=== PATIENT | female | born 1950 | race Caucasian/White ===

== ENCOUNTER 2018-12-31 16:57 | Inpatient (IN) | payer OTHER, MEDICAID ==
[~2018-12-31] VITALS: Ht 162.6 cm; Wt 104.8 kg
[2018-12-31 17:04] VITALS: BP_SYST 120
[2018-12-31] MEDS ORDERED: IPRATROPIUM/ALBUTEROL SULFATE 3 ML AMPUL.NEB (DUONEB) ONE (17:11)
[2018-12-31] MEDS ORDERED: methylPREDNISolone SOD SUCC/PF 62.5 MG/ML VIAL IVP ONE (18:15)
[2018-12-31 18:45] LABS: CALCIUM 9.5 mg/dL (8.4-11.0); CREATININE 6.84 mg/dL (0.55-1.30); POTASSIUM 3.8 mmol/L (3.5-5.1)
[2018-12-31 18:49] LABS: ALBUMIN 3.5 g/dL (3.4-4.8); TOTAL BILIRUBIN 0.6 mg/dL (0.0-1.0)
[2018-12-31 18:56] LABS: PROTHROMBIN TIME 9.9 SECS (9.5-12.5)
[2018-12-31 19:00] LABS: HEMATOCRIT 37.3 % (36-48); HEMOGLOBIN 12.5 g/dL (12.0-16.0); MEAN CORPUSCULAR HEMOGLOBIN 31 pg (27-31); MEAN CORPUSCULAR HGB CONC 34 % (32-36); MEAN CORPUSCULAR VOLUME 93 fL (79.0-98.0); RED BLOOD CELL COUNT(AUTO) 4.02 MIL/uL (4.2-6.2); RED CELL DISTRIBUTION WIDTH 15.9 % (9.0-15.0); WHITE BLOOD COUNT (AUTO) 8.8 K/uL (4.8-10.8)
[2018-12-31 19:01] LABS: BASOPHILS % (AUTO) 0.6 % (0.0-2.0); EOSINOPHILS # (AUTO) 0.1 K/uL (0.0-0.4); EOSINOPHILS % (AUTO) 1.6 % (0.0-4.0); LYMPHOCYTES # (AUTO) 1.7 K/uL (1.0-5.5); LYMPHOCYTES % (AUTO) 19.9 % (20.5-51.5); MONOCYTES # (AUTO) 0.7 K/uL (0.0-1.0); MONOCYTES % (AUTO) 8.1 % (1.7-9.3); NEUTROPHILS # (AUTO) 6.1 K/uL (1.8-7.7); NEUTROPHILS % (AUTO) 69.8 % (40.0-70.0); PLATELET COUNT (AUTO) 150 K/uL (130-430)
[2018-12-31] MEDS ORDERED: FOLI-43 (19:53)
[2018-12-31] MEDS ORDERED: FURO80TA86 PO (19:53)
[2018-12-31] MEDS ORDERED: CARV25TA55 PO (19:53)
[2018-12-31] MEDS ORDERED: B CO1TAB6 PO (19:53)
[2018-12-31] MEDS ORDERED: MED4 PO (19:53)
[2018-12-31] MEDS ORDERED: GUAI118S20 PO (19:53)
[2018-12-31] MEDS ORDERED: LYR50 PO (19:53)
[2018-12-31] MEDS ORDERED: COFF400C PO (19:53)
[2018-12-31] MEDS ORDERED: ASA81 PO (19:53)
[2018-12-31] MEDS ORDERED: REN800 PO (19:53)
[2018-12-31] MEDS ORDERED: SENN-104 PO (19:53)
[2018-12-31] MEDS ORDERED: CAT.1 PO (19:53)
[2018-12-31] MEDS ORDERED: CYM30 PO (19:53)
[2018-12-31] MEDS ORDERED: ROPI1TAB4 PO (19:53)
[2018-12-31] MEDS ORDERED: PHE25 PO (19:53)
[2018-12-31] MEDS ORDERED: IPRATROPIUM/ALBUTEROL SULFATE 3 ML AMPUL.NEB (DUONEB) INH PRN (20:45)
[2018-12-31 21:04] VITALS: BP_SYST 131
[2018-12-31 21:06] VITALS: BP_SYST 145
[2018-12-31] MEDS: BUDESONIDE 0.5 MG/2 ML AMPUL.NEB INH SCH (21:56)
[2018-12-31] MEDS ORDERED: guaiFENesin/DEXTROMETHORPHAN 10 ML UDC PO PRN (22:45)
[2018-12-31] MEDS ORDERED: HYDROcodone/ACETAMIN 5-325 MG TAB (NORCO/ VICODIN) PO PRN (22:45)
[2018-12-31] MEDS ORDERED: MILK OF MAGNESIA 30 ML UDC PO PRN (23:00)
[2018-12-31] MEDS ORDERED: BISACODYL 10 MG/SUPPOSITORY RC PRN (23:00)
[2018-12-31] MEDS ORDERED: ONDANSETRON HCL 4 MG/2 ML VIAL IVP PRN (23:00)
[2018-12-31] MEDS ORDERED: ZOLPIDEM TARTRATE 5 MG TABLET PO PRN (23:00)
[2018-12-31] MEDS ORDERED: DOCUSATE SODIUM 100 MG CAPSULE PO PRN (23:00)
[2018-12-31] MEDS ORDERED: LORazepam 2 MG/ML VIAL IVP PRN (23:00)
[2019-01-01 00:31] VITALS: BP_SYST 142
[2019-01-01] MEDS: CARVEDILOL 25 MG TABLET (COREG) PO SCH ×3 (00:33→17:25)
[2019-01-01 01:27] LABS: CALCIUM 9.3 mg/dL (8.4-11.0); CREATININE 6.67 mg/dL (0.55-1.30); POTASSIUM 3.9 mmol/L (3.5-5.1)
[2019-01-01 01:43] LABS: PHOSPHORUS 4.4 mg/dL (2.7-4.5)
[2019-01-01] MEDS: methylPREDNISolone SOD SUCC/PF 62.5 MG/ML VIAL IVP SCH ×4 (05:00→22:28)
[2019-01-01] MEDS: NORMAL SALINE 5 ML DISP.SYRIN IVF SCH ×4 (05:01→22:27)
[2019-01-01 07:37] VITALS: BP_SYST 120
[2019-01-01 07:47] LABS: PHOSPHORUS 6.2 mg/dL (2.7-4.5)
[2019-01-01] MEDS: IPRATROPIUM/ALBUTEROL SULFATE 3 ML AMPUL.NEB (DUONEB) INH SCH ×4 (07:48→19:40)
[2019-01-01] MEDS: FOLIC ACID 1 MG TABLET PO SCH (08:14)
[2019-01-01] MEDS: VITAMIN B COMPLEX 1 CAP/TAB PO SCH (08:14)
[2019-01-01] MEDS ORDERED: CARVEDILOL 25 MG TABLET (COREG) PO ONE (08:15)
[2019-01-01] MEDS: ASPIRIN 81 MG TAB.CHEW PO SCH (08:15)
[2019-01-01] MEDS: SEVELAMER HCL 800 MG TABLET PO SCH (08:15)
[2019-01-01] MEDS: DULoxetine HCL 30 MG CAPSULE.DR (CYMBALTA) PO SCH (08:15)
[2019-01-01] MEDS: FUROSEMIDE 80 MG TABLET PO SCH (08:16)
[2019-01-01] MEDS: PREGABALIN 25 MG CAPSULE (LYRICA) PO SCH ×2 (08:16→22:26)
[2019-01-01] MEDS: cloNIDine HCL 0.1 MG TABLET PO SCH ×2 (08:17→22:26)
[2019-01-01] MEDS ORDERED: auryxia (08:22)
[2019-01-01] MEDS ORDERED: valtassa (08:22)
[2019-01-01 08:34] LABS: BASOPHILS % (AUTO) 0.3 % (0.0-2.0); HEMATOCRIT 37.4 % (36-48); HEMOGLOBIN 12.4 g/dL (12.0-16.0); LYMPHOCYTES # (AUTO) 0.9 K/uL (1.0-5.5); LYMPHOCYTES % (AUTO) 12.6 % (20.5-51.5); MEAN CORPUSCULAR HEMOGLOBIN 31 pg (27-31); MEAN CORPUSCULAR HGB CONC 33 % (32-36); MEAN CORPUSCULAR VOLUME 92 fL (79.0-98.0); MONOCYTES # (AUTO) 0.2 K/uL (0.0-1.0); MONOCYTES % (AUTO) 2.9 % (1.7-9.3); NEUTROPHILS # (AUTO) 6.2 K/uL (1.8-7.7); NEUTROPHILS % (AUTO) 84.2 % (40.0-70.0); PLATELET COUNT (AUTO) 158 K/uL (130-430); RED BLOOD CELL COUNT(AUTO) 4.05 MIL/uL (4.2-6.2); RED CELL DISTRIBUTION WIDTH 15.8 % (9.0-15.0); WHITE BLOOD COUNT (AUTO) 7.3 K/uL (4.8-10.8)
[2019-01-01] MEDS ORDERED: ROPINIROLE HCL 1 MG PO SCH (09:00)
[2019-01-01] MEDS ORDERED: GREEN COFFEE BEAN PO SCH (09:00)
[2019-01-01] MEDS ORDERED: B COMPLEX WITH VITAMIN C PO SCH (09:00)
[2019-01-01 12:27] VITALS: BP_SYST 112
[2019-01-01] MEDS ORDERED: AURYXIA 210 MG PO SCH (15:00)
[2019-01-01 15:41] VITALS: BP_SYST 148
[2019-01-01] MEDS: BUDESONIDE 0.5 MG/2 ML AMPUL.NEB INH SCH ×2 (16:14→20:06)
[2019-01-01] MEDS: MONTELUKAST 10 MG TABLET PO SCH (17:25)
[2019-01-01] MEDS: AURYXIA 210MG TABLET PO SCH ×2 (17:26→22:29)
[2019-01-01] MEDS: MORPHINE 4 MG/ML INJ. SYRINGE IVP PRN ×2 (17:32→22:43)
[2019-01-01 19:00] VITALS: BP_SYST 143
[2019-01-01 20:00] VITALS: BP_SYST 143
[2019-01-02 01:51] VITALS: BP_SYST 136
[2019-01-02 05:11] LABS: BILIRUBIN,URINE NEGATIVE (NEGATIVE); BLOOD, URINE 1+ (NEGATIVE); CLARITY/URINE HAZY (CLEAR); COLOR,URINE YELLOW (YELLOW); GLUCOSE,URINE TRACE (NEGATIVE); KETONES,URINE NEGATIVE (NEGATIVE); LEUKOCYTE ESTERASE ,URINE NEGATIVE (NEGATIVE); NITRITE, URINE NEGATIVE (NEGATIVE); PH,URINE 6.5 (5.0-8.0); PROTEIN URINE 1+ (NEGATIVE); UROBILINOGEN,URINE 0.2 (0.2-1.0)
[2019-01-02 05:38] LABS: BARBITURATE, URINE NEGATIVE (NEG <=200); BENZODIAZEPINE, URINE NEGATIVE (NEG <=150); CANNABINOID, URINE NEGATIVE (NEG <=50); COCAINE, URINE NEGATIVE (NEG <=150); METHAMPHETAMINES SCREEN,URINE NEGATIVE (NEG <=500); OPIATE, URINE NEGATIVE (NEG <=100); PHENCYCLIDINE SCREEN,URINE NEGATIVE (NEG <=25); UR TRICYCLIC ANTIDEPRESSANTS NEGATIVE (NEG <=300); URINE AMPHETAMINE NEGATIVE (NEG <=500); URINE METHADONE NEGATIVE (NEG <=200); URINE OXYCODONE SCREEN NEGATIVE (NEG <=100); URINE PROPOXYPHENE SCREEN NEGATIVE (NEG <=300)
[2019-01-02] MEDS: MORPHINE 4 MG/ML INJ. SYRINGE IVP PRN ×4 (05:44→22:18)
[2019-01-02] MEDS: NORMAL SALINE 5 ML DISP.SYRIN IVF SCH ×3 (05:45→21:53)
[2019-01-02] MEDS: methylPREDNISolone SOD SUCC/PF 62.5 MG/ML VIAL IVP SCH (05:45)
[2019-01-02] MEDS ORDERED: [UNRECOGNIZED DRUG - OTHER] PO SCH (06:00)
[2019-01-02 06:27] LABS: BACTERIA,URINE FEW /HPF (None Seen); WBC,URINE 0-3 /HPF (0-3)
[2019-01-02 07:18] LABS: CALCIUM 8.6 mg/dL (8.4-11.0); POTASSIUM 5.6 mmol/L (3.5-5.1)
[2019-01-02] MEDS: IPRATROPIUM/ALBUTEROL SULFATE 3 ML AMPUL.NEB (DUONEB) INH SCH ×5 (07:24→23:44)
[2019-01-02 07:26] LABS: PHOSPHORUS 5.6 mg/dL (2.7-4.5)
[2019-01-02 07:33] LABS: CREATININE 10.2 mg/dL (0.55-1.30)
[2019-01-02 08:00] VITALS: BP_SYST 134
[2019-01-02] MEDS: SEVELAMER HCL 800 MG TABLET PO SCH ×2 (08:00→11:31)
[2019-01-02] MEDS: CARVEDILOL 25 MG TABLET (COREG) PO SCH ×2 (08:00→17:00)
[2019-01-02] MEDS: BUDESONIDE 0.5 MG/2 ML AMPUL.NEB INH SCH (08:02)
[2019-01-02 08:25] LABS: HEMATOCRIT 35.4 % (36-48); HEMOGLOBIN 11.9 g/dL (12.0-16.0); MEAN CORPUSCULAR HEMOGLOBIN 31 pg (27-31); MEAN CORPUSCULAR HGB CONC 34 % (32-36); MEAN CORPUSCULAR VOLUME 93 fL (79.0-98.0); RED BLOOD CELL COUNT(AUTO) 3.79 MIL/uL (4.2-6.2); RED CELL DISTRIBUTION WIDTH 15.8 % (9.0-15.0); WHITE BLOOD COUNT (AUTO) 13.5 K/uL (4.8-10.8)
[2019-01-02 08:26] LABS: BASOPHILS % (AUTO) 0.2 % (0.0-2.0); LYMPHOCYTES # (AUTO) 0.9 K/uL (1.0-5.5); LYMPHOCYTES % (AUTO) 6.7 % (20.5-51.5); MONOCYTES # (AUTO) 0.4 K/uL (0.0-1.0); MONOCYTES % (AUTO) 2.8 % (1.7-9.3); NEUTROPHILS # (AUTO) 12.2 K/uL (1.8-7.7); NEUTROPHILS % (AUTO) 90.3 % (40.0-70.0); PLATELET COUNT (AUTO) 153 K/uL (130-430)
[2019-01-02] MEDS: AURYXIA 210MG TABLET PO SCH ×3 (09:00→21:56)
[2019-01-02] MEDS: cloNIDine HCL 0.1 MG TABLET PO SCH ×3 (09:00→21:52)
[2019-01-02] MEDS: FUROSEMIDE 80 MG TABLET PO SCH ×2 (09:00→11:24)
[2019-01-02] MEDS: PREGABALIN 25 MG CAPSULE (LYRICA) PO SCH ×2 (11:22→21:52)
[2019-01-02] MEDS: ASPIRIN 81 MG TAB.CHEW PO SCH (11:22)
[2019-01-02] MEDS: DULoxetine HCL 30 MG CAPSULE.DR (CYMBALTA) PO SCH (11:23)
[2019-01-02] MEDS: FOLIC ACID 1 MG TABLET PO SCH (11:25)
[2019-01-02] MEDS: VITAMIN B COMPLEX 1 CAP/TAB PO SCH (11:35)
[2019-01-02 12:13] VITALS: BP_SYST 140
[2019-01-02] MEDS: methylPREDNISolone SOD SUCC 40 MG/ML VIAL IVP SCH ×2 (14:11→21:53)
[2019-01-02 16:42] VITALS: BP_SYST 143
[2019-01-02] MEDS: MONTELUKAST 10 MG TABLET PO SCH (17:03)
[2019-01-02] MEDS ORDERED: DIPHENHYDRAMINE INJ 50 MG/ML VIAL IVP ONE (19:00)
[2019-01-02 20:00] VITALS: BP_SYST 165
[2019-01-02] MEDS: INSULIN REGULAR, HUMAN 100 UNITS/ML, 10 ML VIAL (novoLIN R) SUBCUT PRN (22:09)
[2019-01-03 00:50] VITALS: BP_SYST 165
[2019-01-03 04:35] VITALS: BP_SYST 171
[2019-01-03] MEDS: MORPHINE 4 MG/ML INJ. SYRINGE IVP PRN ×4 (04:46→22:23)
[2019-01-03] MEDS: NORMAL SALINE 5 ML DISP.SYRIN IVF SCH ×3 (06:11→22:12)
[2019-01-03] MEDS: methylPREDNISolone SOD SUCC 40 MG/ML VIAL IVP SCH (06:11)
[2019-01-03] MEDS: IPRATROPIUM/ALBUTEROL SULFATE 3 ML AMPUL.NEB (DUONEB) INH SCH ×3 (06:56→19:00)
[2019-01-03] MEDS: SEVELAMER HCL 800 MG TABLET PO SCH (07:45)
[2019-01-03 08:25] LABS: CALCIUM 8.5 mg/dL (8.4-11.0); CREATININE 7.22 mg/dL (0.55-1.30); POTASSIUM 4.9 mmol/L (3.5-5.1)
[2019-01-03 08:27] VITALS: BP_SYST 153
[2019-01-03 08:29] LABS: PHOSPHORUS 6.3 mg/dL (2.7-4.5)
[2019-01-03] MEDS: AURYXIA 210MG TABLET PO SCH ×3 (08:31→21:00)
[2019-01-03] MEDS: VITAMIN B COMPLEX 1 CAP/TAB PO SCH (08:31)
[2019-01-03] MEDS: PREGABALIN 25 MG CAPSULE (LYRICA) PO SCH ×2 (08:31→22:11)
[2019-01-03] MEDS: DULoxetine HCL 30 MG CAPSULE.DR (CYMBALTA) PO SCH (08:31)
[2019-01-03] MEDS: FOLIC ACID 1 MG TABLET PO SCH (08:31)
[2019-01-03] MEDS: CARVEDILOL 25 MG TABLET (COREG) PO SCH ×2 (08:31→17:46)
[2019-01-03] MEDS: cloNIDine HCL 0.1 MG TABLET PO SCH ×2 (08:32→22:11)
[2019-01-03] MEDS: ASPIRIN 81 MG TAB.CHEW PO SCH (08:32)
[2019-01-03] MEDS: FUROSEMIDE 80 MG TABLET PO SCH (08:32)
[2019-01-03] MEDS ORDERED: cloNIDine HCL 0.1 MG TABLET PO PRN (10:00)
[2019-01-03] MEDS ORDERED: METOPROLOL TARTRATE 25 MG TABLET PO ONE (10:15)
[2019-01-03 10:47] LABS: BASOPHILS % (AUTO) 0.1 % (0.0-2.0); HEMOGLOBIN 11.9 g/dL (12.0-16.0); LYMPHOCYTES % (AUTO) 6.3 % (20.5-51.5); MEAN CORPUSCULAR HEMOGLOBIN 31 pg (27-31); MEAN CORPUSCULAR HGB CONC 33 % (32-36); MEAN CORPUSCULAR VOLUME 93 fL (79.0-98.0); MONOCYTES % (AUTO) 3.8 % (1.7-9.3); NEUTROPHILS # (AUTO) 11.2 K/uL (1.8-7.7); NEUTROPHILS % (AUTO) 9.8 % (40.0-70.0); PLATELET COUNT (AUTO) 165 K/uL (130-430); RED BLOOD CELL COUNT(AUTO) 3.87 MIL/uL (4.2-6.2); RED CELL DISTRIBUTION WIDTH 16.3 % (9.0-15.0); WHITE BLOOD COUNT (AUTO) 12.5 K/uL (4.8-10.8)
[2019-01-03 10:48] LABS: LYMPHOCYTES # (AUTO) 0.8 K/uL (1.0-5.5); MONOCYTES # (AUTO) 0.5 K/uL (0.0-1.0)
[2019-01-03 11:32] VITALS: BP_SYST 168
[2019-01-03] MEDS: INSULIN REGULAR, HUMAN 100 UNITS/ML, 10 ML VIAL (novoLIN R) SUBCUT PRN (11:51)
[2019-01-03 15:32] VITALS: BP_SYST 149
[2019-01-03 15:56] LABS: HEMOGLOBIN A1C 5.7 % (4.8-5.6)
[2019-01-03] MEDS: MONTELUKAST 10 MG TABLET PO SCH (17:46)
[2019-01-03 20:44] VITALS: BP_SYST 135
[2019-01-03] MEDS: METOPROLOL TARTRATE 25 MG TABLET PO SCH (22:11)
[2019-01-04 00:37] VITALS: BP_SYST 155
[2019-01-04] MEDS: IPRATROPIUM/ALBUTEROL SULFATE 3 ML AMPUL.NEB (DUONEB) INH SCH ×4 (01:00→19:45)
[2019-01-04] MEDS: MORPHINE 4 MG/ML INJ. SYRINGE IVP PRN (04:40)
[2019-01-04] MEDS: INSULIN REGULAR, HUMAN 100 UNITS/ML, 10 ML VIAL (novoLIN R) SUBCUT PRN ×3 (06:38→21:26)
[2019-01-04] MEDS: NORMAL SALINE 5 ML DISP.SYRIN IVF SCH ×2 (07:04→15:28)
[2019-01-04 08:01] VITALS: BP_SYST 141
[2019-01-04] MEDS: FOLIC ACID 1 MG TABLET PO SCH (08:08)
[2019-01-04] MEDS: cloNIDine HCL 0.1 MG TABLET PO SCH ×2 (08:08→21:21)
[2019-01-04] MEDS: VITAMIN B COMPLEX 1 CAP/TAB PO SCH (08:09)
[2019-01-04] MEDS: FUROSEMIDE 80 MG TABLET PO SCH (08:09)
[2019-01-04] MEDS: ASPIRIN 81 MG TAB.CHEW PO SCH (08:10)
[2019-01-04] MEDS: PREGABALIN 25 MG CAPSULE (LYRICA) PO SCH ×2 (08:10→21:20)
[2019-01-04] MEDS: SEVELAMER HCL 800 MG TABLET PO SCH (08:10)
[2019-01-04] MEDS: CARVEDILOL 25 MG TABLET (COREG) PO SCH ×2 (08:10→18:45)
[2019-01-04] MEDS: METOPROLOL TARTRATE 25 MG TABLET PO SCH ×2 (08:10→21:21)
[2019-01-04 08:11] LABS: CALCIUM 8.5 mg/dL (8.4-11.0); PHOSPHORUS 7.2 mg/dL (2.7-4.5); POTASSIUM 5.3 mmol/L (3.5-5.1)
[2019-01-04] MEDS: DULoxetine HCL 30 MG CAPSULE.DR (CYMBALTA) PO SCH (08:11)
[2019-01-04] MEDS: AURYXIA 210MG TABLET PO SCH ×3 (08:12→21:19)
[2019-01-04 08:21] LABS: CREATININE 9.16 mg/dL (0.55-1.30)
[2019-01-04 08:47] LABS: HEMATOCRIT 38.2 % (36-48); HEMOGLOBIN 12.5 g/dL (12.0-16.0); MEAN CORPUSCULAR VOLUME 93 fL (79.0-98.0); RED BLOOD CELL COUNT(AUTO) 4.11 MIL/uL (4.2-6.2); WHITE BLOOD COUNT (AUTO) 14.5 K/uL (4.8-10.8)
[2019-01-04 08:48] LABS: BASOPHILS % (AUTO) 0.2 % (0.0-2.0); EOSINOPHILS % (AUTO) 0.1 % (0.0-4.0); LYMPHOCYTES % (AUTO) 13.9 % (20.5-51.5); MEAN CORPUSCULAR HEMOGLOBIN 30 pg (27-31); MEAN CORPUSCULAR HGB CONC 33 % (32-36); MONOCYTES % (AUTO) 8.8 % (1.7-9.3); NEUTROPHILS # (AUTO) 11.1 K/uL (1.8-7.7); PLATELET COUNT (AUTO) 177 K/uL (130-430); RED CELL DISTRIBUTION WIDTH 15.8 % (9.0-15.0)
[2019-01-04 08:49] LABS: MONOCYTES # (AUTO) 1.3 K/uL (0.0-1.0)
[2019-01-04] MEDS ORDERED: PREDNISONE 20 MG TABLET PO SCH (09:00)
[2019-01-04 12:17] VITALS: BP_SYST 154
[2019-01-04 16:02] VITALS: BP_SYST 138
[2019-01-04] MEDS: MONTELUKAST 10 MG TABLET PO SCH (18:44)
[2019-01-04 20:00] VITALS: BP_SYST 149
[2019-01-04] MEDS ORDERED: PRED20TA PO (20:40)
[2019-01-04] MEDS ORDERED: PRED5TAB PO (20:40)
[2019-01-04 20:44] VITALS: BP_SYST 149
== END 2019-01-04 21:47 | disposition home health service (06) | DRG 682 ==
LOC: SED 16:57 → SMU 20:37
PROVIDERS: ADMIT Family Medicine; ATTEND Family Medicine
PROC: 5A1D70Z Performance of Urinary Filtration, Intermittent, Less than 6 Hours Per Day (ICD-10-PCS; principal; 2019-01-02)
PROC: 5A1D70Z Performance of Urinary Filtration, Intermittent, Less than 6 Hours Per Day (ICD-10-PCS; 2019-01-04)
DX: N17.0 Acute kidney failure with tubular necrosis (principal); J96.02 Acute respiratory failure with hypercapnia; J44.1 Chronic obstructive pulmonary disease with (acute) exacerbation; E87.1 Hypo-osmolality and hyponatremia; I13.2 Hypertensive heart and chronic kidney disease with heart failure and with stage 5 chronic kidney disease, or end stage renal disease; N18.6 End stage renal disease; E78.5 Hyperlipidemia, unspecified; F17.210 Nicotine dependence, cigarettes, uncomplicated; I50.9 Heart failure, unspecified; G62.9 Polyneuropathy, unspecified; T38.0X5A Adverse effect of glucocorticoids and synthetic analogues, initial encounter; M19.90 Unspecified osteoarthritis, unspecified site; Z96.659 Presence of unspecified artificial knee joint; Z82.49 Family history of ischemic heart disease and other diseases of the circulatory system; Z83.3 Family history of diabetes mellitus; Z86.73 Personal history of transient ischemic attack (TIA), and cerebral infarction without residual deficits; Z99.2 Dependence on renal dialysis; Y92.89 Other specified places as the place of occurrence of the external cause; Z88.0 Allergy status to penicillin; Z88.8 Allergy status to other drugs, medicaments and biological substances; Z88.1 Allergy status to other antibiotic agents; Z90.49 Acquired absence of other specified parts of digestive tract; Z90.710 Acquired absence of both cervix and uterus
CPT/HCPCS: 36415; 36600; 71045; 80048; 80053; 80061; 80307; 81000-TC; 82803-TC; 82962; 83036; 83735-TC; 83874; 83880; 84100-TC; 84134; 84443-TC; 84484; 85025; 85379; 85610-TC; 87081; 90935; 90937; 93005; 94640; 94760; 96374; 99285; J1030; J1200; J2270; J2930; J7030; J7512; J7620; J7626

== ENCOUNTER 2019-02-05 11:13 | Emergency (ER) | payer OTHER, MEDICAID ==
[~2019-02-05] VITALS: Ht 162.6 cm; Wt 83.5 kg
[~2019-02-05 11:13] MED LIST: ASA81 PO; B CO1TAB6 PO; CARV25TA55 PO; CAT.1 PO; COFF400C PO; CYM30 PO; FOLI-43; FURO80TA86 PO; GUAI118S20 PO; LYR50 PO; MED4 PO; PHE25 PO; PRED20TA PO; PRED5TAB PO; REN800 PO; ROPI1TAB4 PO; SENN-104 PO; auryxia; valtassa
[2019-02-05 11:18] VITALS: BP_SYST 93
[2019-02-05] MEDS ORDERED: NACL 0.9% 1,000 ML IV ONE ×2 (11:19→15:00)
[2019-02-05 12:26] LABS: BASOPHILS # (AUTO) 0.1 K/uL (0.0-0.2); EOSINOPHILS # (AUTO) 0.2 K/uL (0.0-0.4); EOSINOPHILS % (AUTO) 1.8 % (0.0-4.0); HEMATOCRIT 32.8 % (36-48); HEMOGLOBIN 10.8 g/dL (12.0-16.0); LYMPHOCYTES # (AUTO) 1.9 K/uL (1.0-5.5); LYMPHOCYTES % (AUTO) 17.4 % (20.5-51.5); MEAN CORPUSCULAR HEMOGLOBIN 31 pg (27-31); MEAN CORPUSCULAR HGB CONC 33 % (32-36); MEAN CORPUSCULAR VOLUME 94 fL (79.0-98.0); MONOCYTES % (AUTO) 9.2 % (1.7-9.3); NEUTROPHILS # (AUTO) 7.6 K/uL (1.8-7.7); NEUTROPHILS % (AUTO) 70.6 % (40.0-70.0); PLATELET COUNT (AUTO) 179 K/uL (130-430); WHITE BLOOD COUNT (AUTO) 10.7 K/uL (4.8-10.8)
[2019-02-05 12:40] LABS: CALCIUM 8.3 mg/dL (8.4-11.0); CREATININE 5.49 mg/dL (0.55-1.30); POTASSIUM 3.4 mmol/L (3.5-5.1)
[2019-02-05 12:44] LABS: INR 0.9 (0.8-1.2); PROTHROMBIN TIME 9.7 SECS (9.5-12.5)
[2019-02-05 12:46] LABS: ALBUMIN 2.8 g/dL (3.4-4.8); TOTAL BILIRUBIN 0.5 mg/dL (0.0-1.0)
[2019-02-05 15:36] VITALS: BP_SYST 110
== END 2019-02-05 15:36 | disposition home or self-care (01) ==
LOC: SED 11:13
DX: R55 Syncope and collapse (principal); J44.9 Chronic obstructive pulmonary disease, unspecified; I13.0 Hypertensive heart and chronic kidney disease with heart failure and stage 1 through stage 4 chronic kidney disease, or unspecified chronic kidney disease; E11.22 Type 2 diabetes mellitus with diabetic chronic kidney disease; N18.9 Chronic kidney disease, unspecified; I50.9 Heart failure, unspecified; Z86.79 Personal history of other diseases of the circulatory system; Z99.2 Dependence on renal dialysis; Z88.0 Allergy status to penicillin; Z88.1 Allergy status to other antibiotic agents; Z88.8 Allergy status to other drugs, medicaments and biological substances; Z79.82 Long term (current) use of aspirin; Z79.899 Other long term (current) drug therapy
CPT/HCPCS: 36415; 71045; 80053; 82150; 82550; 83605; 83690; 83880; 84484; 85025; 85610; 85730; 87040; 96360; 96361; 99284; J7030